=== PATIENT | female | born 1985 | race Caucasian/White ===

== ENCOUNTER 2020-04-28 06:36 | Emergency (ER) | payer SELFPAY ==
[2020-04-28] MEDS ORDERED: TRAMADOL HCL 50 MG TAB ONE (06:57)
--- NOTE | 2020-04-28 07:06 | ER ---
Nurse's Notes [facility] Name: Isabella Calderon Age: 34 yrs Sex: Female : 1985 Arrival Date: 04/28/2020 Time: 06:38 Bed 6 Private MD: Diagnosis: Other sprain of left foot Presentation: 04/28 06:46 Chief complaint: Patient states: I was drinking last night and slipped on some water on tl1 the floor and hurt my left ankle/foot. Coronavirus screen: Proceed with normal triage. Patient denies a cough. Patient denies shortness of breath or difficulty breathing. Patient denies measured and/or subjective temperature greater than 100.4F prior to today's visit. Patient denies travel on a cruise ship or to a country the [facility] currently lists as an affected area. Patient denies contact with known and/or suspected case of COVID-19. Ebola Screen: Patient negative for fever greater than or equal to 101.5 degrees Fahrenheit, and additional compatible Ebola Virus Disease symptoms Patient denies exposure to infectious person. Patient denies travel to an Ebola-affected area in the 21 days before illness onset. Initial Sepsis Screen: Does the patient meet any 2 criteria? HR > 90 bpm. Does the patient have a suspected source of infection? No. Patient's initial sepsis screen is negative. Risk Assessment: Do you want to hurt yourself or someone else? Patient reports no desire to harm self or others. Onset of symptoms was April 28, 2020. 06:46 Method Of Arrival: Wheelchair tl1 06:46 Acuity: MILLER 4 tl1 DATA INTEGRATION ARCHITECT: 06:47 LMP 04/13/2020 tl1 Historical: - Allergies: 06:50 No Known Allergies; rr5 - Home Meds: 06:50 Celexa Oral [Active]; Lisinopril Oral [Active]; rr5 - PMHx: 06:50 Hypertension; Asthma; rr5 - PSHx: 06:50 Tonsillectomy; rr5 - Immunization history:: Adult Immunizations up to date. - Social history:: Smoking status: Patient denies any tobacco usage or history of. Screenin:55 Abuse screen: Denies threats or abuse. Nutritional screening: No deficits noted. ea Tuberculosis screening: No symptoms or risk factors identified. Fall Risk None identified. Assessment: 06:56 General: Appears in no apparent distress. Behavior is calm, cooperative, appropriate ea for age. Pain: Complains of pain in left foot. Neuro: Level of Consciousness is awake, alert, obeys commands, Oriented to person, place, time, situation. Cardiovascular: Patient's skin is warm and dry. Respiratory: Airway is patent Respiratory effort is even, unlabored, Respiratory pattern is regular, symmetrical. Derm: Skin is pink, warm \T\ dry. Musculoskeletal: Circulation, motion, and sensation intact. 07:00 Reassessment: RECD REPORT FROM MAKENNA JEWELL. 34YO WF P/W FOOT INJURY. ALL CURRENT ORDERS bp COMPLETED, DISPO PENDING. 07:30 Reassessment: Attempted to rk wrap left foot and ankle and teach crutch training. Pt jl7 severely tearful, unable to safely use crutches to ambulate without additional support to left foot/ankle. Placed a size small walking boot on pt and pt able to safely ambulate with crutches. Pt's left great toe slightly sticks out from boot. Educated pt to be extra careful not to stub the toe while ambulating and to keep foot and ankle elevated while seated, pt verbalized understanding. Vital Signs: 06:47 BP 144 / 105; Pulse 92; Resp 16; Temp 99.1; Pulse Ox 98% ; Weight 83.91 kg; Height 5 tl1 ft. 2 in. (157.48 cm); Pain 0/10; 07:14 BP 135 / 103; Pulse 88; Resp 17; Temp 99; Pulse Ox 99% ; bp 06:47 Body Mass Index 33.84 (83.91 kg, 157.48 cm) tl1 ED Course: 06:38 Patient arrived in ED. ds1 06:43 Nora Ramirez FNP-C is PHCP. snw 06:43 Margarito Haynes MD is Attending Physician. snw 06:47 Triage completed. tl1 06:49 Arm band placed on right wrist. tl1 06:55 Patient has correct armband on for positive identification. Bed in low position. Call ea light in reach. 07:03 Foot Left 3 View XRAY In Process Unspecified. EDMS 07:12 Lio Marsh, BEST is Primary Nurse. bp 07:40 No provider procedures requiring assistance completed. Patient did not have IV access jl7 during this emergency room visit. 07:48 Primary Nurse role handed off by Lio Marsh, BEST jl7 07:48 Renetta Graves, RN is Primary Nurse. jl7 Administered Medications: 06:50 Drug: UltRAM 50 mg {Note: RASS 0.} Route: PO; ea 07:14 Follow up: Response: Pain is decreased bp Outcome: 07:05 Discharge ordered by MD. alvarenga 07:40 Discharged to home ambulatory, with crutches, with friend. jl7 07:40 Condition: stable 07:40 Discharge instructions given to patient, Instructed on discharge instructions, follow up and referral plans. medication usage, Demonstrated understanding of instructions, follow-up care, medications. 07:45 Patient left the ED. jl7 Signatures: Dispatcher [employer] EDMS Nora Ramirez, EMERGENCY MANAGER-C EMERGENCY MANAGER-Csnw Page Hussein ds1 Haylee Tellez RN RN tl1 Renetta Graves, RN RN jl7 Makenna Christianson RN Lio Young ea, RN Jay Chester, RN RN rr5 Corrections: (The following items were deleted from the chart) 08:00 07:58 Patient left the ED. jl7 jl7
--- NOTE | 2020-04-28 07:06 | EDPHYS ---
Physician Documentation [facility] Name: Isabella Calderon Age: 34 yrs Sex: Female : 1985 Arrival Date: 04/28/2020 Time: 06:38 Bed 6 Private MD: ED Physician Margarito Haynes HPI: 04/28 06:47 This 34 yrs old Female presents to ER via Wheelchair with complaints of Foot snw Injury. 06:47 The patient presents with a contusion, decreased range of motion, pain, that is acute, snw swelling, tenderness. The complaints affect the lateral aspect of left foot. Context: The problem was sustained outdoors, resulted from pt states she was partying and did something to her left foot, awoke with swelling, bruising, and pain . Onset: The symptoms/episode began/occurred suddenly, last night. Modifying factors: The symptoms are alleviated by remaining still. Associated signs and symptoms: Pertinent positives: swelling, of the dorsum of left foot. Treatment prior to arrival includes: no previous treatment. Severity of symptoms: At their worst the symptoms were moderate, in the emergency department the symptoms are unchanged. The patient has not experienced similar symptoms in the past. It is unknown whether or not the patient has recently seen a physician. pt here on vacation, injured left foot last pm . 06:51 hx of depression, asthma, and hypertension. snw WELDER PRODUCTION LINE COMBINATION: 06:47 LMP 04/13/2020 tl1 Historical: - Allergies: 06:50 No Known Allergies; rr5 - Home Meds: 06:50 Celexa Oral [Active]; Lisinopril Oral [Active]; rr5 - PMHx: 06:50 Hypertension; Asthma; rr5 - PSHx: 06:50 Tonsillectomy; rr5 - Immunization history:: Adult Immunizations up to date. - Social history:: Smoking status: Patient denies any tobacco usage or history of. ROS: 06:46 Constitutional: Negative for fever, chills, and weight loss, Eyes: Negative for injury, snw pain, redness, and discharge, ENT: Negative for injury, pain, and discharge, hoarse voice since 2 days ago, no pain, + tonsillectomy Neck: Negative for injury, pain, and swelling, Cardiovascular: Negative for chest pain, palpitations, and edema, Respiratory: Negative for shortness of breath, cough, wheezing, and pleuritic chest pain, Abdomen/GI: Negative for abdominal pain, nausea, vomiting, diarrhea, and constipation, Back: Negative for injury and pain, : Negative for injury, bleeding, discharge, and swelling, Skin: Negative for injury, rash, and discoloration, Neuro: Negative for headache, weakness, numbness, tingling, and seizure, Psych: Negative for depression, anxiety, suicide ideation, homicidal ideation, and hallucinations. 06:46 MS/extremity: Positive for injury or acute deformity, decreased range of motion, pain, swelling, tenderness, of the dorsum of left foot. Exam: 06:45 Constitutional: This is a well developed, well nourished patient who is awake, alert, snw and in no acute distress. Head/Face: Normocephalic, atraumatic. Eyes: Pupils equal round and reactive to light, extra-ocular motions intact. Lids and lashes normal. Conjunctiva and sclera are non-icteric and not injected. Cornea within normal limits. Periorbital areas with no swelling, redness, or edema. ENT: Nares patent. No nasal discharge, no septal abnormalities noted. Tympanic membranes are normal and external auditory canals are clear. Oropharynx with no redness, swelling, or masses, exudates, or evidence of obstruction, uvula midline. + hoarse voice. Mucous membranes moist. Neck: Trachea midline, no thyromegaly or masses palpated, and no cervical lymphadenopathy. Supple, full range of motion without nuchal rigidity, or vertebral point tenderness. No Meningismus. Chest/axilla: Normal chest wall appearance and motion. Nontender with no deformity. No lesions are appreciated. Cardiovascular: Regular rate and rhythm with a normal S1 and S2. No gallops, murmurs, or rubs. Normal PMI, no JVD. No pulse deficits. Respiratory: Lungs have equal breath sounds bilaterally, clear to auscultation and percussion. No rales, rhonchi or wheezes noted. No increased work of breathing, no retractions or nasal flaring. Abdomen/GI: Soft, non-tender, with normal bowel sounds. No distension or tympany. No guarding or rebound. No evidence of tenderness throughout. Back: No spinal tenderness. No costovertebral tenderness. Full range of motion. Skin: Warm, dry with normal turgor. Normal color with no rashes, no lesions, and no evidence of cellulitis. Neuro: Awake and alert, GCS 15, oriented to person, place, time, and situation. Cranial nerves II-XII grossly intact. Motor strength 5/5 in all extremities. Sensory grossly intact. Cerebellar exam normal. Normal gait. Psych: Awake, alert, with orientation to person, place and time. Behavior, mood, and affect are within normal limits. 06:45 Musculoskeletal/extremity: Extremities: grossly normal except: contusion, ecchymosis, swelling, tenderness, ROM: limited active range of motion due to pain, Circulation is intact in all extremities. Sensation intact. Vital Signs: 06:47 BP 144 / 105; Pulse 92; Resp 16; Temp 99.1; Pulse Ox 98% ; Weight 83.91 kg; Height 5 tl1 ft. 2 in. (157.48 cm); Pain 0/10; 07:14 BP 135 / 103; Pulse 88; Resp 17; Temp 99; Pulse Ox 99% ; bp 06:47 Body Mass Index 33.84 (83.91 kg, 157.48 cm) tl1 MDM: 06:43 Patient medically screened. snw 06:50 Data reviewed: vital signs, nurses notes. Data interpreted: Pulse oximetry: on room air snw is 98 %. Interpretation: normal. Counseling: I had a detailed discussion with the patient and/or guardian regarding: the historical points, exam findings, and any diagnostic results supporting the discharge/admit diagnosis, the presence of at least one elevated blood pressure reading (>120/80) during this emergency department visit, radiology results, the need for outpatient follow up, for definitive care. 06 06:45 Order name: Foot Left 3 View XRAY; Complete Time: 07:49 snw 04/28 07:03 Order name: Santhosh Wrap; Complete Time: 07:58 snw 04/28 07:03 Order name: Walking boot; Complete Time: 07:58 snw 04/28 07:03 Order name: Crutches: if pt desires; Complete Time: 07:58 snw Administered Medications: 06:50 Drug: UltRAM 50 mg {Note: RASS 0.} Route: PO; ea 07:14 Follow up: Response: Pain is decreased bp Disposition: 04/29 00:06 Co-signature as Attending Physician, Margarito Haynes MD. 7 Disposition: 04/28/20 07:05 Discharged to Home. Impression: Other sprain of left foot. - Condition is Stable. - Discharge Instructions: Elastic Bandage and RICE, Crutch Use, Foot Sprain. - Prescriptions for Diclofenac Sodium 75 mg Oral Tablet Sustained Release - take 1 tablet by ORAL route 2 times per day; 30 tablet. orphenadrine citrate 100 mg Oral Tablet Sustained Release - take 1 tablet by ORAL route 2 times per day As needed; 20 tablet. - Medication Reconciliation Form, Thank You Letter, Antibiotic Education, Prescription Opioid Use form. - Follow up: Emergency Department; When: As needed; Reason: Worsening of condition. Follow up: Private Physician; When: 2 - 3 days; Reason: Recheck today's complaints, Continuance of care, Re-evaluation by your physician. Signatures: Dispatcher [employer] EDMS Nora Ramirez, AMANDO-C GAS APPLIANCE REPAIRER-Csnw Renetta Graves RN RN jl7 Makenna Christianson RN RN Jay Chin RN RN rr5 Margarito Haynes MD MD 7 Lio Marsh RN bp Corrections: (The following items were deleted from the chart) 04/28 07:58 07:05 04/28/2020 07:05 Discharged to Home. Impression: Other sprain of left foot. jl7 Condition is Stable. Forms are Medication Reconciliation Form, Thank You Letter, Antibiotic Education, Prescription Opioid Use. Follow up: Emergency Department; When: As needed; Reason: Worsening of condition. Follow up: Private Physician; When: 2 - 3 days; Reason: Recheck today's complaints, Continuance of care, Re-evaluation by your physician. snw
--- NOTE | 2020-04-28 07:45 | RAD REPORT ---
EXAM DESCRIPTION: RAD - Foot Left 3 View - 04/28/2020 7:02 am CLINICAL HISTORY: Left Foot pain status post fall FINDINGS: No fracture or dislocation is seen. Large calcaneal spur
[2020-04-28 08:07] VITALS: BP 135/103; TEMP 99; O2SAT 99
== END 2020-04-28 07:58 | disposition home or self-care (01) ==
LOC: ER 06:36
DX: S93.692A Other sprain of left foot, initial encounter (principal); X58.XXXA Exposure to other specified factors, initial encounter; Y93.89 Activity, other specified; Y92.89 Other specified places as the place of occurrence of the external cause; I10 Essential (primary) hypertension
CPT/HCPCS: 99283